=== PATIENT | female | born 2000 | race Caucasian/White ===

== ENCOUNTER 2022-10-03 12:22 | Emergency (ER) | payer MEDICAID ==
[~2022-10-03] VITALS: Ht 147.3 cm; Wt 50.0 kg
[2022-10-03 12:49] VITALS: BP 121/85
[2022-10-03] MEDS ORDERED: FLUORESCEIN SODIUM 1MG/STRIP LEFTEYE ONE (13:30)
[2022-10-03] MEDS ORDERED: TETRACAINE 0.5% OPHTH DROPS 4ML LEFTEYE ONE (13:30)
[2022-10-03] MEDS ORDERED: NAPR375T5 MT (16:33)
== END 2022-10-03 18:14 | disposition home or self-care (01) ==
LOC: ER 12:22
DX: H11.32 Conjunctival hemorrhage, left eye (principal); Z90.49 Acquired absence of other specified parts of digestive tract
CPT/HCPCS: 81025; 99284